=== PATIENT | male | born 1970 | race Caucasian/White ===

== ENCOUNTER 2016-09-21 00:08 | Emergency (ER) | payer SELFPAY ==
[2016-09-21] MEDS ORDERED: HYDROCODONE/ACETAMINOPHEN 5-325 MG 6 TAB/DSPK PO PRN (01:04)
[2016-09-21] MEDS ORDERED: KETOROLAC TROMETHAMINE 60 MG/2 ML SDV IM ONE (01:04)
--- NOTE | 2016-09-21 01:11 | ER Document Report ---
ED General - General Chief Complaint: Back Pain Stated Complaint: LOWER BACK PAIN Time Seen by Provider: 09/21/16 00:58 Mode of Arrival: Ambulatory Information source: Patient Notes: 45-year-old man with no medical problems who presents to the emergency room with lower back pain after hanging ceiling and sheet rock for the past 3 days. Patient states she has had a lot of spasm and pain to the lower back. He denies any numbness to the lower extremities. Patient denies any urinary incontinence or urinary retention. Patient denies any fever. TRAVEL OUTSIDE OF THE [place] IN LAST 30 DAYS: No - HPI Onset: Yesterday Onset/Duration: Gradual Quality of pain: Dull Severity: Moderate Pain Level: 2 Associated symptoms: denies: Chest pain, Fever, Shortness of breath Exacerbated by: Movement Relieved by: Denies Similar symptoms previously: No Recently seen / treated by doctor: No - Related Data Allergies/Adverse Reactions: No Known Allergies Allergy (Verified 09/21/16 00:15) Home Medications: Current Home Medications No Home Medications 09/21/16 [History] Past Medical History - General Information source: Patient - Social History Smoking Status: Current Every Day Smoker Cigarette use (# per day): No Chew tobacco use (# tins/day): No Frequency of alcohol use: None Drug Abuse: None Lives with: Family Family History: Reviewed & Not Pertinent Patient has suicidal ideation: No Patient has homicidal ideation: No - Past Medical History Cardiac Medical History: Reports: None Pulmonary Medical History: Reports: None EENT Medical History: Reports: None Neurological Medical History: Reports: None Endocrine Medical History: Reports: None Renal/ Medical History: Reports: None. Denies: Hx Peritoneal Dialysis Malignancy Medical History: Reports None GI Medical History: Reports: None Musculoskeltal Medical History: Reports Hx Arthritis Skin Medical History: Reports None Psychiatric Medical History: Reports: Hx Bipolar Disorder, Hx Schizoaffective Disorder Infectious Medical History: Reports: None Surgical Hx: Negative - Immunizations Immunizations up to date: Yes Hx Diphtheria, Pertussis, Tetanus Vaccination: Yes Review of Systems - Review of Systems Constitutional: See HPI EENT: No symptoms reported Cardiovascular: No symptoms reported Respiratory: No symptoms reported Gastrointestinal: No symptoms reported Genitourinary: No symptoms reported Male Genitourinary: No symptoms reported Musculoskeletal: See HPI Skin: No symptoms reported Hematologic/Lymphatic: No symptoms reported Neurological/Psychological: No symptoms reported Physical Exam - Vital signs Vitals: Temp Pulse Resp BP Pulse Ox 98.5 F 85 18 143/104 H 96 09/21/16 00:16 09/21/16 00:16 09/21/16 00:16 09/21/16 00:16 09/21/16 00:16 Notes: Physical exam: GENERAL: 45-year-old man, alert and oriented 3, no acute distress HEAD: Atraumatic, normocephalic. EYES: Pupils equal round and reactive to light, extraocular movements intact, sclera anicteric, conjunctiva are normal. ENT: TMs normal, nares patent, oropharynx clear without exudates. Moist mucous membranes. NECK: Normal range of motion, supple motor 5/5, sensory grossly intact LUNGS: Breath sounds clear to auscultation bilaterally and equal. No wheezes rales or rhonchi. HEART: Regular rate and rhythm without murmurs, rubs or gallops. ABDOMEN: Soft, normoactive bowel sounds. No tenderness to palpation. No guarding, no rebound. No masses appreciated. Back: No changes in the skin. No spinal tenderness. No spinal step-offs. Patient does have a lot of lumbar paraspinal pain and spasm. EXTREMITIES: Normal range of motion, no pitting or edema. No clubbing or cyanosis. NEUROLOGICAL: Cranial nerves II through XII grossly intact. Normal speech, normal gait. PSYCH: Normal mood, normal affect. SKIN: Warm, Dry, normal turgor, no rashes or lesions noted. Course - Vital Signs Vital signs: Temp Pulse Resp BP Pulse Ox 97.1 F 88 16 112/88 H 96 09/21/16 01:30 09/21/16 01:30 09/21/16 01:30 09/21/16 01:30 09/21/16 01:30 Discharge - Discharge Clinical Impression: Acute low back pain Condition: Stable Disposition: HOME, SELF-CARE Admitting Provider: Samuel Instructions: Low Back Pain ([facility]), Warm Packs ([facility]), Oral Narcotic Medication ( [facility]) Additional Instructions: Recommendations: Follow-up with Dr. Villasenor's office tomorrow. Take Aleve (Naprosyn) [id number] twice daily. Forms: Return to Work Referrals: MOZIE,LOGAN, MD [Primary Care Provider] - Follow up as needed
[2016-09-21 01:33] VITALS: BP 112/88
== END 2016-09-21 01:30 | disposition home or self-care (01) ==
LOC: ER 00:08
DX: M54.5 Low back pain (principal); M54.9 Dorsalgia, unspecified; F17.200 Nicotine dependence, unspecified, uncomplicated
CPT/HCPCS: 99283; 96372; J1885

== ENCOUNTER 2017-01-20 01:23 | Emergency (ER) | payer OTHER ==
[2017-01-20] MEDS ORDERED: ACETAMINOPHEN 325 MG TABLET PO ONE (01:37)
[2017-01-20] MEDS ORDERED: KETOROLAC TROMETHAMINE INJ/PF 30 MG/1 ML SDV IV ONE (02:07)
[2017-01-20 02:12] LABS: ABSOLUTE EOSINOPHILS # (AUTO) 0.4 10^3/uL (0.0-0.6); ABSOLUTE LYMPHOCYTES (AUTO) 2.8 10^3/uL (0.5-4.7); ABSOLUTE MONOCYTES (AUTO) 0.8 10^3/uL (0.1-1.4); ABSOLUTE NEUT (AUTO) 4.2 10^3/uL (1.7-8.2); BASOPHILS % (AUTO) 0.2 % (0-2); EOSINOPHILS % (AUTO) 4.4 % (0-6); HEMATOCRIT 45.9 % (37.9-51.0); HEMOGLOBIN 16.2 g/dL (13.5-17.0); HGB HCT DIFFERENCE 2.7; LYMPHOCYTES % (AUTO) 34.6 % (13-45); MEAN CORPUSCULAR HEMOGLOBIN 33.9 pg (27.0-33.4); MEAN CORPUSCULAR HGB CONC 35.4 g/dL (32.0-36.0); MEAN CORPUSCULAR VOLUME 96 fl (80-97); MONOCYTES % (AUTO) 9.5 % (3-13); RED CELL DISTRIBUTION WIDTH 12.8 % (11.5-14.0); SEGMENTED NEUTROPHILS % (AUTO) 51.3 % (42-78); WHITE BLOOD COUNT 8.2 10^3/uL (4.0-10.5)
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
[2017-01-20 02:20] LABS: ALCOHOL 171 mg/dL (NONE DETECTED); ANION GAP 15 (5-19); BLOOD UREA NITROGEN 4 mg/dL (7-20); CALCIUM 9.1 mg/dL (8.4-10.2); CARBON DIOXIDE 24 mmol/L (22-30); CHLORIDE 109 mmol/L (98-107); CREATININE RESULT 0.66 mg/dL (0.52-1.25); GLUCOSE 88 mg/dL (75-110); POTASSIUM 4.1 mmol/L (3.6-5.0); SODIUM 148.1 mmol/L (137-145)
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
[2017-01-20 05:26] VITALS: BP 132/88
== END 2017-01-20 05:15 | disposition home or self-care (01) ==
LOC: ER 01:23
DX: M54.5 Low back pain (principal); V13.9XXA Unspecified pedal cyclist injured in collision with car, pick-up truck or van in traffic accident, initial encounter; Y93.55 Activity, bike riding; F10.120 Alcohol abuse with intoxication, uncomplicated; F17.200 Nicotine dependence, unspecified, uncomplicated
CPT/HCPCS: 99284; 96374; 36415; 80307; 85025; 80048; 71010; 72110; 70450; 72125; L0120; J1885

== ENCOUNTER 2017-08-27 09:22 | Emergency (ER) | payer SELFPAY ==
[2017-08-27 09:29] VITALS: BP 149/85
[2017-08-27] MEDS ORDERED: KETOROLAC TROMETHAMINE INJ/PF 30 MG/1 ML SDV IM ONE (09:45)
--- NOTE | 2017-08-27 09:51 | ER Document Report ---
HPI - HPI Pain Level: 5 Notes: Patient is a 46-year-old male with no significant past medical history who presents to the ED complaining of left medial skin redness and swelling 3-4 days along side of the nail. 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 Patient states that he did pull a thorn out of his thumb in that area and has had continued redness and a rawness to the skin since then. Patient states he has pain associated without any itching. He has not noticed any obvious abscess, red streaks, or purulent discharge. Patient states that he does want the area cut open his he feels like there may be something deep in that area that is causing him some pain. Denies any drug allergies. Denies any headache, fever, URI, sore throat, chest pain, palpitations, syncope, cough, shortness of breath , wheeze, dyspnea, abdominal pain, nausea/vomiting/diarrhea, urinary retention, dysuria, hematuria, numbness/tingling, muscle paralysis/weakness, or rash. - ROS Systems Reviewed and Negative: Yes All other systems reviewed and negative - MUSCULOSKELETAL Musculoskeletal: REPORTS: Extremity pain - L thumb Past Medical History - Social History Smoking Status: Current Every Day Smoker Chew tobacco use (# tins/day): No Frequency of alcohol use: None Drug Abuse: None Family History: Reviewed & Not Pertinent Patient has suicidal ideation: No Patient has homicidal ideation: No Renal/ Medical History: Denies: Hx Peritoneal Dialysis Musculoskeltal Medical History: Reports Hx Arthritis Psychiatric Medical History: Reports: Hx Bipolar Disorder, Hx Schizoaffective Disorder - Immunizations Immunizations up to date: Yes Hx Diphtheria, Pertussis, Tetanus Vaccination: Yes Vertical Provider Document - CONSTITUTIONAL Agree With Documented VS: Yes Notes: PHYSICAL EXAMINATION: GENERAL: Well-appearing, well-nourished and in no acute distress. LUNGS: Breath sounds clear to auscultation bilaterally and equal. No wheezes rales or rhonchi. HEART: Regular rate and rhythm without murmurs, rubs, gallops. Musculoskeletal: Left thumb: FROM to passive/active. Strength 5+/5. N/V intact distal. No bony tenderness. Extremities: No cyanosis, clubbing, or edema b/l. Peripheral pulses 2+. Capillary refill less than 3 seconds. NEUROLOGICAL: Cranial nerves grossly intact. Normal speech, normal gait. Normal sensory, motor exams PSYCH: Normal mood, normal affect. SKIN: Lt medial thumb along side of nail: there is raw skin noted with mild swelling and erythema. No obvious abscess noted. + tenderness. No streaks or purulence. - INFECTION CONTROL TRAVEL OUTSIDE OF THE [place] IN LAST 30 DAYS: No Course - Re-evaluation Re-evalutation: 08/27/17 10:00 Patient is an afebrile, well-hydrated, 46-year-old male who presents to the ED with a mild paronychia to the left thumb. Vitals are acceptable without any significant tachycardia, tachypnea, or hypoxia. PE is otherwise unremarkable for any neurovascular compromise, obvious tendon/ligament rupture, obvious fracture/dislocation, septic joint. I&D was performed successfully without any complications and wound culture was obtained. Patient is nontoxic-appearing. No other labs or imaging warranted at this time based on H&P. Wound dressing was placed and wound instructions reviewed. Rx for naproxen. Toradol given IM. Rx for keflex/bactrim. Conservative measures for symptoms. Recheck with your PCM in 2-3 days. Return to the ED with any worsening/concerning symptoms otherwise as reviewed in discharge. Patient is in agreement. tdap given today. - Vital Signs Vital signs: Temp Pulse Resp BP Pulse Ox 98.0 F 83 18 149/85 H 08/27/17 09:27 08/27/17 09:27 08/27/17 09:27 08/27/17 09:27 Procedures - Incision and Drainage Left Thumb Time completed: 10:00 - Patient tolerated procedure well without any complications. Wound culture obtained. Type: Simple Anesthetic type: 1% Lidocaine mL's of anesthetic: 3 Blade size: 11 I&D procedure: Betadine prep applied Incision Method: Incision made by scalpel Amount/type of drainage: Scant purulent/bloody Discharge - Discharge Clinical Impression: Paronychia Condition: Stable Disposition: HOME, SELF-CARE Instructions: Paronychia ([facility]) Additional Instructions: Keep the skin clean Wash with soap and water Tylenol/ibuprofen if needed Triple antibiotic ointment daily Take medication as directed Monitor for any worsening symptoms Recheck with your PCM in 2-3 days Return to the ED with any worsening symptoms and/or development of fever, headache, chest pain, palpitations, syncope, shortness of breath, trouble breathing, abdominal pain, n/v/d, abscess, purulent discharge, red streaks, worsening swelling, or other worsening symptoms that are concerning to you. Prescriptions: Cephalexin Monohydrate [Keflex 500 mg Capsule] 500 mg PO BID #20 capsule Naproxen 500 mg PO BID PRN #30 tablet PRN Reason: Sulfamethoxazole/Trimethoprim [Bactrim Ds Tablet] 1 each PO BID #20 tablet Forms: Elevated Blood Pressure, Smoking Cessation Education Referrals: LOGAN PATHAK MD [Primary Care Provider] - 08/30/17 [facility] [Provider Group] - Follow up as needed
[2017-08-27] MEDS ORDERED: DIPH/PERTUSS(ACELL)/TETANUS VAC/PF 0.5 ML SYR (>=10YO) IM ONE (09:53)
[2017-08-27] MEDS ORDERED: LIDOCAINE 2% VISCOUS SOLN 20 ML UDCUP PO ONE (10:04)
== END 2017-08-27 10:16 | disposition home or self-care (01) ==
LOC: ER 09:22
DX: L03.012 Cellulitis of left finger (principal); F17.200 Nicotine dependence, unspecified, uncomplicated
CPT/HCPCS: 99283; 96372; 90471; 87070; 87205; 87075; 87077; 87186; 90715; 10060; J3490; J1885

== ENCOUNTER 2017-10-03 12:25 | Emergency (ER) | payer SELFPAY ==
[2017-10-03 12:51] VITALS: BP 137/85
--- NOTE | 2017-10-03 13:39 | ER Document Report ---
ED General - General Chief Complaint: Eye Pain Stated Complaint: EYE PAIN Time Seen by Provider: 10/03/17 12:58 Notes: 46-year-old male to the emergency department complaining of left eye pain. States that he thinks he got boric acid in it. Also states that he has poison jhon everywhere and wants something for the rash. Also states that he has a toothache and wants some pain medication. States that he got the potential "boric acid" exposure yesterday some time. States that his left eye is burning. TRAVEL OUTSIDE OF THE [place] IN LAST 30 DAYS: No - Related Data Allergies/Adverse Reactions: No Known Allergies Allergy (Verified 10/03/17 12:26) Past Medical History - General Information source: Patient - Social History Smoking Status: Current Every Day Smoker Cigarette use (# per day): Yes Frequency of alcohol use: Heavy Drug Abuse: None Lives with: Alone Family History: Reviewed & Not Pertinent Patient has suicidal ideation: No Patient has homicidal ideation: No - Medical History Notes: States that he has alcoholism. Renal/ Medical History: Denies: Hx Peritoneal Dialysis Musculoskeletal Medical History: Reports Hx Arthritis Psychiatric Medical History: Reports: Hx Bipolar Disorder, Hx Schizoaffective Disorder - Immunizations Immunizations up to date: Yes Hx Diphtheria, Pertussis, Tetanus Vaccination: Yes Review of Systems - Review of Systems Constitutional: denies: Fever, Malaise, Weakness EENT: Eye pain, Tearing, Mouth pain - Dental caries. denies: Double vision Cardiovascular: denies: Chest pain, Palpitations, Heart racing Respiratory: Cough, Short of breath - Chronic shortness of breath with COPD. Heavy smoker. denies: Hurts to breathe Gastrointestinal: denies: Abdominal pain, Diarrhea, Nausea, Vomiting Musculoskeletal: denies: Back pain, Joint pain, Muscle pain Skin: See HPI, Change in color, Dryness, Lesions, Rash Neurological/Psychological: denies: Confusion, Weakness, Numbness Physical Exam - Vital signs Vitals: Temp Pulse Resp BP Pulse Ox 97.8 F 85 16 137/85 H 99 10/03/17 12:46 10/03/17 12:46 10/03/17 12:46 10/03/17 12:46 10/03/17 12:46 Interpretation: Normal - General General appearance: Appears well, Alert - HEENT Head: Normocephalic, Atraumatic Eyes: Normal Conjunctiva: Normal. No: Icteric, Injected Cornea: Normal. No: Corneal abrasion, Corneal ulcer, Embedded foreign body, Flourescein stain uptake, Opacified, Superficial foreign body Eyelashes: Normal Pupils: PERRL Visual acuity- Right eye: 20/40 Visual acuity- Left eye: 20/30 Visual acuity- Both eyes: 20/30 Corrective lenses worn: No Fundascopic: Normal Mouth/Lips: Caries Pharynx: Normal Neck: Normal - Respiratory Respiratory status: No respiratory distress Chest status: Nontender Breath sounds: Normal Chest palpation: Normal - Cardiovascular Rhythm: Regular Heart sounds: Normal auscultation Murmur: No - Abdominal Inspection: Normal Distension: No distension Bowel sounds: Normal Tenderness: Nontender Organomegaly: No organomegaly - Back Back: Normal, Nontender - Extremities General upper extremity: Normal inspection, Nontender, Normal color, Normal ROM , Normal temperature General lower extremity: Normal inspection, Nontender, Normal color, Normal ROM , Normal temperature, Normal weight bearing. No: Gómez's sign - Neurological Neuro grossly intact: Yes Cognition: Normal Orientation: AAOx4 Addi Coma Scale Eye Opening: Spontaneous Salome Coma Scale Verbal: Oriented Salome Coma Scale Motor: Obeys Commands Salome Coma Scale Total: 15 Speech: Normal Motor strength normal: LUE, RUE, LLE, RLE Sensory: Normal - Skin Skin Temperature: Warm Skin Moisture: Dry Skin Color: Other - Patient has multiple areas on his lower extremities consistent with a contact dermatitis. There is no signs of cellulitis. There is no abscess. There is no drainage. Course - Re-evaluation Re-evalutation: 10/03/17 16:01 After I completed the eye exam in the physical exam patient began to ask me for pain medication. States that Dr. Villasenor always gives him some hydrocodone's when he goes to see him. I explained to the patient that I do not do that. Patient then told me that I "do not know how to do my job". Then patient made a comment about killing oneself. I then stated to him that that would not be a good idea for him to do that. He then informed me "I was not talking about myself I mean you should go kill yourself". After tolerating this insult I told the patient that I would no longer participate in this abusive behavior that he is free to go. I notified security for them to be on standby for his discharge. I went and explained to him the 2 prescriptions that I have given him. Explained to him that I have given him the name of by drop board man for follow-up. Patient was discharged without further incident. - Vital Signs Vital signs: Temp Pulse Resp BP Pulse Ox 97.8 F 85 16 137/85 H 99 10/03/17 12:46 10/03/17 12:46 10/03/17 12:46 10/03/17 12:46 10/03/17 12:46 Discharge - Discharge Clinical Impression: Poison jhon dermatitis, Left eye pain Condition: Good Disposition: HOME, SELF-CARE Instructions: Ketorolac Tromethamine Eye Drops ([facility]), Contact Dermatitis ([facility]) , Chemical in the Eye ([facility]), Use of Diphenhydramine Prescriptions: Ketorolac Tromethamine [Acular Ls] 1 drop OS QID #5 ml Methylprednisolone [Medrol Dosepack (4 mg/Tab) 21 Tab/Dosepak] 21 tab PO DAILY # 1 dspk Referrals: ISA VELAZQUEZ DO [ACTIVE STAFF] - Follow up as needed
== END 2017-10-03 13:51 | disposition home or self-care (01) ==
LOC: ER 12:25
DX: H57.12 Ocular pain, left eye (principal); Z77.098 Contact with and (suspected) exposure to other hazardous, chiefly nonmedicinal, chemicals; L23.7 Allergic contact dermatitis due to plants, except food; K02.9 Dental caries, unspecified; K08.89 Other specified disorders of teeth and supporting structures; J44.9 Chronic obstructive pulmonary disease, unspecified; R06.02 Shortness of breath; R05 Cough; F17.210 Nicotine dependence, cigarettes, uncomplicated
CPT/HCPCS: 99283